=== PATIENT | male | born 1955 | race Caucasian/White ===

== ENCOUNTER 2017-02-26 16:27 | Emergency (ER) | payer MEDICARE, OTHER | END 2017-02-26 21:25 | disposition home or self-care (01) | LOC: D.ER 16:27 | DX: S83.91XA Sprain of unspecified site of right knee, initial encounter (principal); X58.XXXA Exposure to other specified factors, initial encounter; Y93.89 Activity, other specified; Y92.89 Other specified places as the place of occurrence of the external cause; K76.9 Liver disease, unspecified ==

== ENCOUNTER 2017-03-08 14:42 | Emergency (ER) | payer MEDICARE, OTHER | END 2017-03-08 16:09 | disposition home or self-care (01) | LOC: D.ER 14:42 | DX: S89.91XA Unspecified injury of right lower leg, initial encounter (principal); X58.XXXA Exposure to other specified factors, initial encounter; Y93.89 Activity, other specified; Y92.89 Other specified places as the place of occurrence of the external cause; K76.9 Liver disease, unspecified ==

== ENCOUNTER → 2017-03-14 13:03 | Outpatient (CLI) | payer MEDICARE, OTHER | END | disposition home or self-care (01) | LOC: D.MRI 13:03 | DX: M25.561 Pain in right knee (principal) ==

== ENCOUNTER 2017-04-05 07:25 | Day surgery (SDC) | payer MEDICARE, OTHER ==
[2017-04-04 10:04] LABS: HEMATOCRIT 38.7 % (42.0-54.0); HEMOGLOBIN 13.4 g/dL (13.5-17.5); MCH 34.7 pg (26.0-34.0); MCHC 34.6 g/dL (31.0-37.0); MCV 100.3 fL (80.0-100.0); MEAN PLATELET VOLUME 11.2 fL (7.4-10.4); RBC 3.86 10x6/uL (4.20-6.10)
[2017-04-04 10:09] LABS: PLATELET COUNT 21 10x3/uL (130-400); WBC 1.9 10x3/uL (4.8-10.8)
[2017-04-04 10:11] LABS: CALC OSMOLALITY 283 mosm/kg (275-300); CALCIUM 8.8 mg/dL (8.5-10.1); CARBON DIOXIDE 28.4 mmol/L (21.0-32.0); CHLORIDE - SERUM 108 mmol/L (98-107); GLUCOSE 108 mg/dL (74-106); POTASSIUM - SERUM 3.9 mmol/L (3.5-5.1); SODIUM 142 mmol/L (136-145); UREA NITROGEN 12 mg/dL (7-18); eGFR NON AFRICAN AMERICAN 80 mL/min (90-120)
--- NOTE | 2017-04-04 10:20 | NUR ---
G[facility]AN APPT: CRITICAL LAB RESULTS WBC 1.9, PLATELET 21,[address] [address] BENITEZ'S OFFICE.
[2017-04-04 10:34] LABS: EOSINOPHILS 6 % (0-7); LYMPHOCYTES 25 % (15-50); MONOCYTES 2 % (2-11); NEUTROPHILS 67 % (40-80); PLATELET ESTIMATE DECREASED
[~2017-04-05] VITALS: Ht 188 cm; Wt 88.5 kg
[~2017-04-05 07:25] MED LIST: ENULOSE10 G/15 ML PO; HYTRIN5 MG PO; IRON PO; LACTINEX C1 TAB.CHEW PO; MULTIPLE VITAMI1 TA1 PO; OMEPRAZOLE20 M1 PO; PROPRANOLOL HCL20 MG PO; PROSCAR5 MG PO; ULTRAM50 MG PO
[2017-04-05] MEDS ORDERED: NORCO 7.5/325 T1 TA1 PO (08:33)
[2017-04-05 08:39] VITALS: Ht 188 cm; Wt 88.5 kg
--- NOTE | 2017-04-05 08:58 | NUR ---
[address] BENITEZ RIGHT SHOULDER NOT LEFT SHOULDER STATED OKAY.
[2017-04-05 09:10] LABS: APTT 34.3 SECONDS (22.8-39.4); INR 1.61 (0.85-1.17); PROTIME 19.1 SECONDS (11.6-15.0)
--- NOTE | 2017-04-05 09:10 | NUR ---
0910 PLATELETS STARTED AFTER BENADRYL GIVEN EXPLAINED S/S OF BLOOD REACTIONS HAS ITCHING NORMALLY. NO SOB.
--- NOTE | 2017-04-05 09:24 | NUR ---
0925 PLATELETS INFUSING WITHOU REACTIONS DENIES RESPIRATORY PROBLEMS OR ITCHING. V/S/STABLE IV LEFT HAND NO REDNESS OR SWELLING.REPORT TO YURY MARTINEZ PLATELETS AT 367 /HR.
[2017-04-05] MEDS ORDERED: PERCOCET 10/3251 TA1 PO (13:17)
--- NOTE | 2017-04-05 16:01 | NUR ---
1550--IV DC'D, PT UP TO DRESS. LISSETTE RN
--- NOTE | 2017-04-06 15:24 | OP ---
PATIENT NAME: ESSENCE HARRIS MEDICAL RECORD: [id number] :51 LOCATION:[facility] ADMISSION DATE: SURGEON: RUBENS BENITEZ MD DATE OF OPERATION: 04/05/2017 PREOPERATIVE DIAGNOSIS: 1. Anterior cruciate ligament tear of the right knee. 2. Right shoulder rotator cuff arthropathy. POSTOPERATIVE DIAGNOSIS: 1. Anterior cruciate ligament tear of the right knee plus medial meniscus tear. 2. Right shoulder rotator cuff arthropathy. PROCEDURE: 1. Arthroscopic anterior cruciate ligament repair with allograft. 2. Arthroscopic partial medial meniscectomy. 3. Right shoulder cortisone injection. SURGEON: Rubens Benitez MD. ANESTHESIA: General. INTRAOPERATIVE COMPLICATIONS: None. 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 OPERATIVE SUMMARY IN DETAIL: After obtaining the appropriate preoperative orthopedic surgery consent as well as anesthetic consultation, evaluation and clearance, the patient was brought to the operating room and placed on operating table in supine position. After general laryngeal mask was administered, tourniquet was placed about the proximal aspect of the right lower extremity. Right lower extremity was then prepped and draped in a routine sterile fashion. Attention was first turned to the medial meniscus. Arthroscopic resector was utilized to debride the medial meniscus back to stable meniscal elements. The area of distal femoral chondromalacia did appear to be posttraumatic in nature as there was not a corresponding area on the tibia. This was gently debrided with light chondroplasty. Then the ACL stump was taken down with a 5.0 resector and notchplasty was performed. At this point, the tibial tunnel was created for a size 10 back to the original footprint of the ACL and then the femoral tunnel was created. First of all, the Beath pin was placed at the appropriate position and out the lateral cortex and out the skin, 4.5 over-reaming was done for passage of the button. This was followed by a low profile reaming of the femoral tunnel to approximately 35 mm. Next, the passing suture was pulled through the tunnels using the Beath pin guide and then this passing suture was used to pass the tails of the prepared 9.5 mm allograft. The 9.5 mm allograft was then gently guided into the tibial followed by the femoral holes and then the button then came through laterally nicely. The button was then tensioned down to the lateral cortex of the femur. Tension was held on the graft while range of motion was undertaken. Lastly, a tibial hole was created using drill bit and the 6.5 tibial stabilization post was then placed. The graft was tied around this using the FiberWire that was affixed to the graft. This was then tightened. Knee was taken through range of motion and found to be stable. The OPERATIVE REPORT [id number] ESSENCE HARRIS tibial post-screw was then set flush with the bone. The guide sutures for the ACL were cut off at the skin and the wounds were copiously irrigated and closed in usual fashion. Sterile dressings were applied. Tourniquet was deflated. The patient was awakened, taken to the recovery room in stable condition. All final needle and sponge counts were correct. TRANSINT:[id number] Voice Confirmation ID: [id number] DOCUMENT ID: [id number] EMMANUEL ROWE, RUBENS [place] at 1524 CC: [id number] DICTATION DATE: 04/05/17 1346 NOVELTY TWISTER OPERATOR: 04/06/17 0128 [facility] 04/05/17 [facility] [address] [place] [address]
== END 2017-04-05 16:20 | disposition home or self-care (01) ==
LOC: D.OPS 07:25 → D.PAN 14:45 → D.OPS 16:20
PROVIDERS: Orthopaedic Surgery
DX: S83.511A Sprain of anterior cruciate ligament of right knee, initial encounter (principal); S83.231A Complex tear of medial meniscus, current injury, right knee, initial encounter; M13.811 Other specified arthritis, right shoulder; Z01.812 Encounter for preprocedural laboratory examination

== ENCOUNTER → 2017-04-19 10:27 | Outpatient (CLI) | payer MEDICARE, OTHER ==
[2017-04-05 08:39] VITALS: BMI 25.1
[~2017-04-19 10:27] MED LIST changes: +NORCO 7.5/325 T1 TA1 PO; +PERCOCET 10/3251 TA1 PO
[2017-04-19 10:54] LABS: BASOPHILS 0.4 % (0-2); EOSINOPHILS 2.7 % (0-7); HEMATOCRIT 37.9 % (42.0-54.0); HEMOGLOBIN 13.2 g/dL (13.5-17.5); IMMATURE GRANULOCYTES 0.4 % (0-5); LYMPHOCYTES 19.2 % (15-50); MCH 34.7 pg (26.0-34.0); MCHC 34.8 g/dL (31.0-37.0); MCV 99.7 fL (80.0-100.0); MONOCYTES 11.6 % (2-11); NEUTROPHILS 65.7 % (40-80); RDW 14.2 % (11.5-14.5); WBC 2.2 10x3/uL (4.8-10.8)
[2017-04-19 11:04] LABS: PLATELET COUNT 24 10x3/uL (130-400)
[2017-04-19 12:21] LABS: ERYTHROCYTE SEDIMENTATION RATE 3 mm/hr (0-20)
== END | disposition home or self-care (01) ==
LOC: D.US 10:27
PROVIDERS: Orthopaedic Surgery
DX: M79.604 Pain in right leg (principal); R60.0 Localized edema